=== PATIENT | male | born 1950 | race Caucasian/White ===

== ENCOUNTER 2021-11-08 08:45 | Outpatient (RCR) | payer MEDICARE, OTHER | END 2021-11-22 | disposition home or self-care (01) | LOC: ONC 08:45 | PROVIDERS: ATTEND Radiology Radiation Oncology | DX: C61 Malignant neoplasm of prostate (principal); E11.9 Type 2 diabetes mellitus without complications; I10 Essential (primary) hypertension | CPT/HCPCS: 99204 ==

== ENCOUNTER 2022-02-23 05:31 | Outpatient (CLI) | payer MEDICARE, OTHER ==
[~2022-02-23] VITALS: Ht 175.3 cm; Wt 104.5 kg
[2022-02-24] MEDS ORDERED: METF-399 PO (15:35)
[2022-02-24] MEDS ORDERED: FINA5TAB6 PO (15:35)
[2022-02-24] MEDS ORDERED: LOSA25TA41 PO (15:35)
[2022-02-24] MEDS ORDERED: SITA50TA PO (15:35)
[2022-02-24] MEDS ORDERED: AMLO5TAB4 PO (15:35)
[2022-02-24] MEDS ORDERED: TMSL.4C PO (15:35)
[2022-02-25] MEDS ORDERED: SITA1TBM7 PO (10:59)
[2022-02-25] MEDS ORDERED: FESO4TAB PO (10:59)
[2022-02-25] MEDS ORDERED: CIPR250T3 PO (11:00)
== END 2022-02-25 11:11 | disposition home or self-care (01) ==
LOC: PREOP 05:31
PROVIDERS: ATTEND Radiology Radiation Oncology
DX: Z01.818 Encounter for other preprocedural examination (principal)

== ENCOUNTER 2022-03-02 09:24 | Day surgery (SDC) | payer MEDICARE, OTHER ==
[~2022-03-02] VITALS: Ht 175.3 cm; Wt 104.5 kg
[2022-03-02] VITALS (10 sets, daily range): BP systolic 131–151; BP diastolic 80–97
[~2022-03-02 09:24] MED LIST: AMLO5TAB4 PO; CIPR250T3 PO; FESO4TAB PO; FINA5TAB6 PO; LOSA25TA41 PO; METF-399 PO; SITA1TBM7 PO; SITA50TA PO; TMSL.4C PO
[2022-03-02] MEDS ORDERED: LACTATED RINGERS 1,000 ML IV PRN (09:45)
--- NOTE | 2022-03-02 10:21 | Progress Note-Pre Operative ---
Pre-Operative Progress Note H&P Reviewed The H&P was reviewed, patient examined and no changes noted. Date Seen by Provider: March 02, 2022 Time Seen by Provider: 10:20 Date H&P Reviewed: March 02, 2022 Time H&P Reviewed: 10:20 Pre-Operative Diagnosis: Prostate cancer cT3, PSA 5.09 (on Proscar), [place] 9 (5+4) Rober WING MD March 02, 2022 10:21
--- NOTE | 2022-03-02 10:26 | Discharge Inst-Surgical ---
Discharge Inst-Surgical Reconcile Patient Problems Problems Reviewed?: Yes Depart Medication/Instructions New, Converted or Re-Newed RX: Other (Patient has at home) Consults/Follow Up Goal/Follow Up Appt.: 1) Appointment for treatment planning ct scan at [facility] 03/16/22 arrive at 9:00 a.m. Patient Instructions: Drink 1/2 bottle of oral contrast at 8:30 a.m. Activity Activity as Tolerated: Yes Driving Instructions: No Driving for 24 Hours Diet Discharge Diet: No Restrictions Symptoms to Report to Physicia: Urine Color Change, Urination Difficulty If Any Problems/Questions/Issu: Contact Your Physician Rober WING MD March 02, 2022 10:26
[2022-03-02] MEDS ORDERED: proPOfol 200 MG/20 ML (DIPRIVAN) VIAL IV ONE (10:37)
[2022-03-02] MEDS ORDERED: SEVOFLURANE (ULTANE) 15 ML INHAL SOLN ONE ×2 (10:37→11:39)
[2022-03-02] MEDS ORDERED: ONDANSETRON 4 MG/2 ML (SDV) Z0FRAN ONE (10:37)
[2022-03-02] MEDS ORDERED: LIDOCAINE PF 2% 5 ML (XYLOCAINE) VIAL ONE (10:37)
[2022-03-02] MEDS ORDERED: MIDAZOLAM 2 MG/2 ML (VERSED) VIAL ONE (10:38)
[2022-03-02] MEDS ORDERED: fentaNYL INJ 100 MCG/2 ML AMP ONE (10:38)
[2022-03-02] MEDS ORDERED: ONDANSETRON 4 MG/2 ML (SDV) Z0FRAN IVP PRN (12:00)
[2022-03-02] MEDS ORDERED: morphine INJ 10 MG/ML 1ML (SYR OR VIAL) IVP ONE (12:00)
--- NOTE | 2022-03-02 12:00 | Progress Note-Post Operative ---
Post-Operative Progess Note Surgeon (s)/Fitness Management Director (s) Surgeon Rober WING MD Fitness Management Director: N/A Pre-Operative Diagnosis Prostate cancer cT3, PSA 5.09 (on Proscar), [place] 9 (5+4) Post-Operative Diagnosis Same as pre-op Procedure & Operative Findings Date of Procedure 03/02/22 Procedure Performed/Findings (1) Placement of fiducial gold seed markers (2) Injection of biodegradable hydrogel prostate-rectal spacer utilizing the [employer] [place] system Anesthesia Type General Estimated Blood Loss Estimated blood loss (mL): None Specimens/Packing Specimens Removed None Packing: None Rober WING MD March 02, 2022 12:00
--- NOTE | 2022-03-04 13:58 | Anesthesia-General Post-Op ---
General Patient Condition Mental Status/LOC: Same as Preop Cardiovascular: Satisfactory Nausea/Vomiting: Absent Respiratory: Satisfactory Pain: Controlled Complications: Absent Post Op Complications Complications None Follow Up Care/Instructions Patient Instructions None needed. Anesthesia/Patient Condition Patient Condition Patient was seen on - after his procedure prior to his discharge and he was doing well, no complaints, stable vital signs, no apparent adverse anesthesia problems. No complications reported per nursing. JUDAH RODRIGUEZ DO March 04, 2022 13:58
== END 2022-03-02 13:40 ==
LOC: SDC 09:24
PROVIDERS: ATTEND Radiology Radiation Oncology
DX: C61 Malignant neoplasm of prostate (principal); G47.33 Obstructive sleep apnea (adult) (pediatric); Z99.89 Dependence on other enabling machines and devices
CPT/HCPCS: 55874; 55876; 82947; 87081; C1889

== ENCOUNTER 2022-03-16 09:01 | Outpatient (RCR) | payer MEDICARE, OTHER | END 2022-03-22 | disposition home or self-care (01) | LOC: ONC 09:01 | PROVIDERS: ATTEND Radiology Radiation Oncology | DX: C61 Malignant neoplasm of prostate (principal); E11.9 Type 2 diabetes mellitus without complications; I10 Essential (primary) hypertension | CPT/HCPCS: 77334 ==

== ENCOUNTER → 2022-04-21 | Outpatient (RCR) | payer MEDICARE, OTHER | END | disposition home or self-care (01) | LOC: ONC 03-23 10:43 | PROVIDERS: ATTEND Radiology Radiation Oncology | DX: Z51.0 Encounter for antineoplastic radiation therapy (principal); C61 Malignant neoplasm of prostate; E11.9 Type 2 diabetes mellitus without complications; I10 Essential (primary) hypertension | CPT/HCPCS: 77300; 77301; 77336; 77338; 77385 ==

== ENCOUNTER 2022-05-20 07:38 | Outpatient (RCR) | payer MEDICARE, OTHER | END 2022-05-22 | disposition home or self-care (01) | LOC: ONC 07:38 | PROVIDERS: ATTEND Radiology Radiation Oncology | DX: Z51.0 Encounter for antineoplastic radiation therapy (principal); C61 Malignant neoplasm of prostate; E11.9 Type 2 diabetes mellitus without complications; I10 Essential (primary) hypertension | CPT/HCPCS: 77336; 77385 ==

== ENCOUNTER 2022-05-26 07:55 | Outpatient (RCR) | payer MEDICARE, OTHER | END 2022-06-22 | disposition home or self-care (01) | LOC: ONC 07:55 | PROVIDERS: ATTEND Radiology Radiation Oncology | DX: Z51.0 Encounter for antineoplastic radiation therapy (principal); C61 Malignant neoplasm of prostate; E11.9 Type 2 diabetes mellitus without complications; I10 Essential (primary) hypertension | CPT/HCPCS: 77336; 77385 ==

== ENCOUNTER 2022-07-14 08:55 | Outpatient (RCR) | payer MEDICARE, OTHER | END 2022-07-22 | disposition home or self-care (01) | LOC: ONC 08:55 | PROVIDERS: ATTEND Radiology Radiation Oncology | DX: C61 Malignant neoplasm of prostate (principal) | CPT/HCPCS: 99213 ==

== ENCOUNTER 2022-10-06 08:41 | Outpatient (RCR) | payer MEDICARE, OTHER | END 2022-10-22 | disposition home or self-care (01) | LOC: ONC 08:41 | PROVIDERS: ATTEND Radiology Radiation Oncology | DX: C61 Malignant neoplasm of prostate (principal) | CPT/HCPCS: 99213 ==